=== PATIENT | female | born 1960 | race Caucasian/White ===

== ENCOUNTER 2017-05-13 07:53 | Inpatient (IN) | payer OTHER ==
[~2017-05-13] VITALS: Ht 149.9 cm; Wt 40.8 kg
--- NOTE | 2017-05-13 15:00 | NUR ---
PRE ASSESSMENT Pt 57 y/o female in admission office,came from home with . Pt alert and oriented to name, place, and time. Perrla.Skin warm and dry to touch. Respirations even and unlabored. Bilateral fine hand tremors noted. Pt appears slightly anxious during conversation. VS wnl; jp=583/87 p=79 r=16 o2=96@ra. Educated pt on rules on the unit and pt acknowledged. No distress noted at this time.
--- NOTE | 2017-05-13 15:10 | NUR ---
ADMISSION Pt 57 y/o female admitted for etoh dependence. Pt alert and oriented to name, place, and time. Perrla.Skin warm and dry to touch. Respirations even and unlabored. Bilateral fine hand tremors noted. Pt appears slightly anxious during conversation. Pt was seen by . JUAN estrella. Oriented pt to room and the unit. ciwa=8. Skin clear. Pt states pmd= Dr Jhaveri. Pt states does not currently attend AA, but had a sponsor but is about to change the current sponsor. Skin clear. Pt denies any sz history. Bed on lowest position with side rails x2 up for safety. Call light within reach. No distress noted at this time. Substance hx: -etoh ( wine) oral 1/2 glass daily x1 week. Last drink was 05/13/17 and had <1/2 glass; total 24 years 1 bottle daily x4 years. -etoh ( vodka) oral 1 shot glass 2-3 times a week for 4 years. Last drink 05/12/17 and had 1 shot glass. Total 24 years - ativan po 1mg daily x1 week. Last took 05/13/17 0.5mg. total 1 week. treatment hx - [facility] 03/2017-05/2017 medical hx htn, hysterectomy 1986
[2017-05-13] MEDS ORDERED: LORA0.5T PO (15:25)
[2017-05-13 15:26] LABS: *URINE HCG, QUAL NEGATIVE (NEGATIVE)
[2017-05-13] MEDS ORDERED: BETA15CR4 TP (15:26)
[2017-05-13] MEDS ORDERED: TRAZ-144 PO (15:27)
[2017-05-13] MEDS ORDERED: PROM25TA15 PO (15:28)
[2017-05-13] MEDS ORDERED: DIPH1TAB PO (15:29)
[2017-05-13] MEDS ORDERED: LOSA1TAB35 PO (15:30)
[2017-05-13] MEDS ORDERED: CITA10TA9 PO (15:30)
[2017-05-13] MEDS ORDERED: ESTR1.25 PO (15:32)
[2017-05-13] MEDS ORDERED: PANT40TA4 PO (15:33)
[2017-05-13 15:40] LABS: *AMPHETAMINE, URINE NEGATIVE (NEGATIVE); *BARBITURATE, URINE NEGATIVE (NEGATIVE); *CANNABINOID, URINE NEGATIVE (NEGATIVE); *COCCAINE, URINE NEGATIVE (NEGATIVE); *OPIATE, URINE NEGATIVE (NEGATIVE); *PHENCYCLIDINE SCREEN,URINE NEGATIVE (NEGATIVE)
[2017-05-13] MEDS ORDERED: LOPE-156 PO (15:54)
--- NOTE | 2017-05-13 15:57 | NUR ---
Therapist welcomed client to [facility] and advised client of daily group times. Client stated she will try to start attending groups tomorrow.
--- NOTE | 2017-05-13 16:33 | NUR ---
PRN Pt with ciwa=8. Pt anxious and bilateral hand tremors noted. Pt with pressured speech noted as well. Ativan po prn per MD order given and tolerated well.
--- NOTE | 2017-05-13 17:33 | NUR ---
PRN EVAL Pt with ciwa=3.
--- NOTE | 2017-05-13 18:36 | NUR ---
END OF SHIFT Pt 57 y/o female admitted for etoh dependence. Pt alert and oriented to name, place, and time. Perrla. Skin warm and dry touch. Respirations even and unlabored. Bilateral hand tremors noted. Pt with some periods of anxiety noted. Pt observed mostly isolative to room. Pt was seen by MD. Pt medication compliant and tolerated well. No ASE noted. Bed on lowest position with side rails x2 up for safety. Call light within reach. No distress noted at this time.
--- NOTE | 2017-05-13 19:05 | NUR ---
Start of Shift Patient Received. Patient is in her room awake, alert and verbally responsive. Breathing even and non labored. Patient is a 57 year old female admitted today 05/13/17 for ETOH Dependence under the care of Dr. [place]. Patient was placed on PRN medications for increased signs and symptoms of withdrawal. Patient verbalizes no known allergies, wishes to be full code, following a regular diet, placed on fall and seizure precautions, with skin noted intact. Labs drawn and to be resulted. Per endorsement, patient noted with CIWA of 8 and PRN Ativan 1mg administered as per orders. All needs attended to promptly. Will continue plan of care as orders.
[2017-05-13 20:00] LABS: BASOPHILS % (AUTO) 0.4 % (0.0-2.0); EOSINOPHILS # (AUTO) 0.2 K/uL (0.0-0.7); EOSINOPHILS % (AUTO) 3.3 % (0.0-7.0); ETHANOL < 3 MG/DL (0-0); HEMATOCRIT 33.3 % (37-47); HEMOGLOBIN 11.3 G/DL (12.0-16.0); LYMPHOCYTES # (AUTO) 1.2 K/UL (0.8-4.8); LYMPHOCYTES % (AUTO) 18.3 % (20.5-51.5); MEAN CORPUSCULAR HEMOGLOBIN 34.9 UUG (27.0-31.0); MEAN CORPUSCULAR HGB CONC 34 g/dL (32.0-37.0); MEAN CORPUSCULAR VOLUME 103.5 FL (81.0-99.0); MONOCYTES # (AUTO) 0.8 K/UL (0.1-1.30); MONOCYTES % (AUTO) 12.1 % (0.0-11.0); NEUTROPHILS # (AUTO) 4.1 K/UL (1.8-8.9); NEUTROPHILS % (AUTO) 65.9 % (38.5-71.5); PLATELET COUNT (AUTO) 136 K/UL (150-450); RED BLOOD CELL COUNT(AUTO) 3.22 MIL/UL (4.2-5.4); WHITE BLOOD COUNT (AUTO) 6.3 K/UL (4.0-11.2)
[2017-05-13 20:05] LABS: ALANINE AMINOTRANSFERASE 79 U/L (14-59); ALKALINE PHOSPHATASE 91 U/L (50-136); AMYLASE 64 U/L (25-115); ASPARTATE AMINOTRANSFERASE 59 U/L (15-37); BILIRUBIN,TOTAL 0.6 mg/dL (0.2-1.0); CARBON DIOXIDE 28 mmol/L (21-32); CHLORIDE 103 mmol/L (98-107); GLUCOSE 125 mg/dL (74-106); MAGNESIUM 1.3 mg/dL (1.8-2.4); POTASSIUM 3.4 mmol/L (3.5-5.1); TOTAL PROTEIN, SERUM 6.7 g/dL (6.4-8.2); UREA NITROGEN, BLOOD 16 mg/dL (7-18)
[2017-05-13 20:15] VITALS: BP 120/68
--- NOTE | 2017-05-13 21:45 | NUR ---
PRN Medication Administration Patient verbalizing increased anxiety and agitation. CIWA noted to be 16. Patient also noted to be tremulous, chills and sweats. PRN Ativan 2mg administered as per orders. Patients labs resulted and magnesium noted to be 1.3 and Potassium noted to be 3.4. Patient verbalizes of previously taking Potassium and Magnesium routinely but did not bring her medications with her. MD made aware. Will continue to monitor accordingly.
--- NOTE | 2017-05-13 22:30 | NUR ---
PRN Medication reassessment Patient is noted in bed awake and watching TV. Patient was given PRN Ativan 2mg for CIWA of 16. Patient is able to verbalize PRN Ativan was effective in reducing Anxiety. Patient still noted to be restless. Patient verbalized Im trying to slowly fall asleep. CIWA noted to be 4. All needs attended to promptly.
[2017-05-14 00:41] VITALS: BP 113/68
[2017-05-14 04:37] VITALS: BP 114/68
--- NOTE | 2017-05-14 07:09 | NUR ---
End of Shift Patient is in bed sleeping. Breathing even and non labored. No signs of pain or discomfort noted. Patient is a 57 year old female admitted on 05/13/17 for ETOH Dependence under the care of Dr. [place]. Patient was placed on PRN medications for increased signs and symptoms of withdrawal. No known allergies, Full Code, Regular Diet, placed on fall and seizure precautions, with skin noted intact. Labs resulted and noted with Potassium of 3.4 and Magnesium of 1.3. Patient was supplemented with Micro-K 30meq and Mag Ox 800mg. Patient noted with a CIWA of 16 and was given PRN Ativan 2mg as per order. PRN Medication noted to be effective CIWA noted to be 4. All needs attended to promptly. Will endorse to continue plan of care as ordered.
--- NOTE | 2017-05-14 07:10 | NUR ---
Start of Shift notes: Received patient in her room. Alert and verbally responsive. Oriented x 4. Able to make her needs known. Respirations even and unlabored. No SOB noted. Skin warm and dry to touch. Abdomen soft and non-distended. BS (+) in all 4 quadrants. No complains of N/V/D or constipation noted. Bladder non-distended. Voids independently. Ambulatory ad cristian with steady gait. Patient is a 57 year old female admitted for ETOH dependence who is only on PRNs at this time. Prior to admission, patient was 1/2 glass of eint and 1 shot of Vodka 2-3x/wk and 1 mg x 1 week. Has past medical hx of HTN, hysterectomy. NKA. FULL CODE. Regular diet. On fall and seizure precautions. Educated patient on her current plan of care for the day and her medication regimen. Encouraged oral fluid intake and encouraged group participation to learn new skills to prevent relapse.
[2017-05-14 08:00] VITALS: BP 135/91
--- NOTE | 2017-05-14 08:13 | NUR ---
Bentyl 20 mg PO/Tylenol 650mg/Ativan 1 mg PO given: CIWA 6, patient noted with mild to moderate anxiety, mild agitation, mild sweats. Also complains of abdominal cramps and headache. Denies N/V or diarrhea. Non-pharmacological interventions provided but ineffective. Medicated patient with Bentyl 20 mg PO for abdominal cramps, Tylenol 650 mg PO for headache and Ativan 1 mg PO for CIWA 6. Will monitor for effectiveness.
--- NOTE | 2017-05-14 09:13 | NUR ---
Re-assessment: Ativan, Bentyl and Tylenol CIWA 2; Less anxiety, less sweating noted. States that Tylenol 650 mg PO was effective in relieving headache and Bentyl 20 mg PO was effective in reducing stomach cramps. Ativan 1 mg PO was effective.
[2017-05-14 12:00] VITALS: BP 103/61
--- NOTE | 2017-05-14 12:50 | NUR ---
Order clarification: Trazadone Order clarification obtained from Dr. Barba regarding patient's Trazadone order at 1800. Patient is already on Trazdone 50mg PO QHS PRN for sleep. Per MD, continue with original orders. Orders noted and carried out.
--- NOTE | 2017-05-14 14:09 | NUR ---
Therapist prompted client to attend group today. Client agreed to attend group today.
[2017-05-14 16:00] VITALS: BP 133/61
--- NOTE | 2017-05-14 19:05 | NUR ---
Start of Shift Patient Received. Patient is in bed, awake, alert and verbally responsive. Breathing even and non labored. Patient is a 57 year old female admitted on 05/13/17 for ETOH Dependence and is currently receiving PRN medications for increased signs and symptoms of withdrawal. No known allergies, Full Code, Regular Diet, placed on fall and seizure precautions, with skin noted intact. Last noted CIWA 1. Patient was given PRN Ativan, Bentyl, Tylenol with medications noted to be effective. All needs attended to promptly. Will continue plan of care as ordered.
--- NOTE | 2017-05-14 19:07 | NUR ---
End of Shift Notes: Patient continues to be on close monitoring to manage symptoms for ETOH withdrawal. Patient is place on PRNs at this time. VS monitored closely q 4 hours. No significant abnormalities noted. Has hx of HTN. No s/s of hypo/HTN noted. Withdrawal symptoms closely monitored. Initial CIWA 6, patient presented with sweats, tremors and mild to moderate anxiety. Medicated patient with Ativan 1 mg, Bentyl 20 mg and Tylenol 650 mg PO for headache, stomach cramps and anxiety due to ETOH withdrawal with help after 1 hour. Last CIWA 1. Patient was unable to participate in group and activities during the shift due to her withdrawal symptoms. Compliant with care and treatment. All needs met and attended. Will endorse to night nurse for continuity of care.
[2017-05-14 20:30] VITALS: BP 116/60
[2017-05-15 00:24] VITALS: BP 111/60
--- NOTE | 2017-05-15 00:35 | NUR ---
PRN Medication Administration Patient verbalizing increased anxiety with chills and sweats verbalized. Patient is also verbalizing inability of falling asleep. CIWA noted to be 8. PRN Ativan 1mg and PRN Trazodone administered as per orders. Will continue to monitor.
--- NOTE | 2017-05-15 01:30 | NUR ---
PRN Medication Reassessment Patient is noted in bed sleeping. Breathing even and non labored. No signs of pain or discomfort noted. Patient was given PRN ativan 1mg for increased anxiety, sweats, and chills. patient was also given PRN Trazodone for inability of falling asleep. PRN Medications noted to be effective. Will continue to monitor.
[2017-05-15 04:15] VITALS: BP 112/68
--- NOTE | 2017-05-15 07:06 | NUR ---
End of Sift Patient is in bed sleeping. Breathing even and non labored. Patient is a 57 year old female admitted on 05/13/17 for ETOH Dependence and continues on PRN medications for increased signs and symptoms of withdrawal. No known allergies, Full Code, Regular Diet, placed on fall and seizure precautions, with skin noted intact. Last noted CIWA 8. Patient was given PRN Ativan 1 mg and Trazodone with medications noted to be effective. All needs attended to promptly. Will endorse to continue plan of care as ordered.
[2017-05-15 08:00] VITALS: BP 100/70
[2017-05-15 08:47] LABS: BILIRUBIN,DIRECT 0.1 mg/dL (0.0-0.2); BILIRUBIN,TOTAL 0.3 mg/dL (0.2-1.0); CREATININE 0.9 mg/dL (0.6-1.3); MAGNESIUM 1.5 mg/dL (1.8-2.4); POTASSIUM 4.5 mmol/L (3.5-5.1); TOTAL PROTEIN, SERUM 6.5 g/dL (6.4-8.2)
--- NOTE | 2017-05-15 08:58 | NUR ---
Ativan 1 mg PO given: CIWA 5, patient verbalizes moderate anxiety, intermittent diaphoresis and fine tremors to BUE. Medicated patient with Ativan 1 mg PO as ordered per CIWA score. Will monitor for effectiveness.
--- NOTE | 2017-05-15 09:58 | NUR ---
Re-assessment: CIWA 3, per patient verbalizes relief from anxiety and sweating. PRN Ativan 1 mg PO was effective.
[2017-05-15 10:08] LABS: HEPATITIS B SURFACE AG Negative (Negative)
--- NOTE | 2017-05-15 10:18 | NUR ---
Labs: Mag level 1.8L. Replaced with 800 mg of Max Oxide PO as ordered. Patient education provided.
--- NOTE | 2017-05-15 10:33 | NUR ---
Therapist prompted client to attend group today. Client agreed to attend.
[2017-05-15 12:00] VITALS: BP 92/61
--- NOTE | 2017-05-15 12:02 | NUR ---
Taper initiated: Dr. Montana placed patient on a modified 2-day Ativan taper as ordered. Patient education provided.
[2017-05-15 16:00] VITALS: BP 100/66
--- NOTE | 2017-05-15 19:05 | NUR ---
Start of Shift Patient Received. Patient is in her room, awake, alert and verbally responsive. Breathing even and non labored. Patient is a 57 year old female admitted on 05/13/17 for ETOH Dependence . No known allergies, Full Code, Regular Diet, placed on fall and seizure precautions, with skin noted intact. Per endorsement, Patient was seen and evaluated by MD with new orders for patient to be started on a modified 2 day Ativan taper. Last noted CIWA 1. All needs attended to promptly. Will endorse to continue plan of care as ordered.
--- NOTE | 2017-05-15 19:13 | NUR ---
End of Shift Notes: Patient started on modified 2-day Ativan taper as ordered to manage withdrawal symptoms from ETOH. VS monitored closely q 4 hours. No significant abnormalities noted. Has hx of HTN. No s/s of hypo/HTN noted. Withdrawal symptoms closely monitored. Initial CIWA 5, patient presented with sweats, tremors and mild to moderate anxiety. Medicated patient with Ativan 1 mg PO as ordered at 0858. Last CIWA 1. Patient was unable to participate in group and activities during the shift due to her withdrawal symptoms. Compliant with care and treatment. All needs met and attended. Will endorse to night nurse for continuity of care.
[2017-05-15 20:41] VITALS: BP 101/68
--- NOTE | 2017-05-15 20:45 | NUR ---
PRN Medication Administration Patient is verbalizing inability of falling asleep. PRN Trazodone administered as per order. Will continue to monitor.
--- NOTE | 2017-05-15 21:30 | NUR ---
PRN Medication Reassessment Patient noted in bed sleeping. Breathing even and non labored. No signs of pain or discomfort noted. PRN Trazodone noted to be effective. Patient continues to sleep with no complications noted. Will continue to monitor.
[2017-05-16 00:28] VITALS: BP 97/56
[2017-05-16 04:16] VITALS: BP 102/53
--- NOTE | 2017-05-16 07:18 | NUR ---
End of Shift Patient is in bed sleeping. Breathing even and non labored. Patient is a 57 year old female admitted on 05/13/17 for ETOH Dependence . No known allergies, Full Code, Regular Diet, placed on fall and seizure precautions, with skin noted intact. Patient was given PRN Trazodone with medication noted to be effective. Last noted CIWA 6. PPD to be reassessed today 05/16/17. All needs attended to promptly. Will endorse to continue plan of care as ordered.
--- NOTE | 2017-05-16 07:55 | NUR ---
START OF SHIFT Rcvd endorsement from ongoing nurse, client is in bed, she is a/o x 4, she presents with depressed mood, flat affect, and flushed face. She reports abdominal cramps, restless legs, decreased appetite and anxiety. Client denies any N/V/D. She denies any SI/HI. Encouraged client to attend group therapy for skills to maintain sober. Encouraged client to increase PO fluid as tolerated to facilitate detox. Client is a 57 y/o female, admitted to [facility] for withdrawal from alcohol. Client is on a modified Ativan fixed-dose scheduled taper x 2 day, tolerating well. Last CIWA 6 @ 0800. Client had an uneventful night, she slept 7 hrs. She denies any hx of of withdrawal-induced seizures, she is on seizure precautions. She reports NKA, she is full code, Regular diet. Side rails x 2 up/padded. Call light within reach.
[2017-05-16 08:22] VITALS: BP 104/60
--- NOTE | 2017-05-16 09:00 | NUR ---
Zero induration noted @ TB site on L forearm.
[2017-05-16 12:00] VITALS: BP 109/68
[2017-05-16 16:55] VITALS: BP 104/66
--- NOTE | 2017-05-16 19:07 | NUR ---
END OF SHIFT Client is a 57 y/o female, admitted to [facility] for withdrawal from alcohol. Client completed a modified Ativan fixed-dose scheduled taper x 2 day, tolerated well. Last CIWA 4 @ 1600. Zero induration noted at TB site on L forearm. Client is schedule for discharge tomorrow to [facility], she stated that she is ready to continue her treatment into recovery. Encouragement needed for client to attend group therapy. Adequate PO fluid intake 2190mL, void x 4, stool x 1. She denies any hx of of withdrawal-induced seizures, she is on seizure precautions. She reports NKA, she is full code, Regular diet. Side rails x 2 up/padded. Call light within reach.
[2017-05-16 20:00] VITALS: BP 125/76
--- NOTE | 2017-05-16 20:00 | NUR ---
Start of Shift Notes Received a 57 y/o female, admitted to [facility] for withdrawal from alcohol. Px has NKA, full code, and on Regular diet. Client completed a modified Ativan fixed-dose scheduled taper x 2 day, tolerated well. To be discharge tomorrow, 05/17/2017 to [facility]. During the rounds at 1930, px appears anxious and requested for pill to help her sleep tonight. CIWA 3. Side rails x 2 up/padded. Call light within reach. We'll continue to monitor.
--- NOTE | 2017-05-16 20:58 | NUR ---
PRN Trazodone Px requested for Trazodone to help her sleep tonight. Trazodone 50 mg/tab, 1 tab given PO as PRN med. We'll continue to monitor.
[2017-05-17] VITALS: BP 119/72
--- NOTE | 2017-05-17 | NUR ---
CIWA deferred CIWA deferred due to px is sleeping, to assess if the px is awake per doctor's order. We'll continue to monitor.
[2017-05-17 04:00] VITALS: BP 124/77
--- NOTE | 2017-05-17 04:00 | NUR ---
CIWA deferred CIWA deferred due to px is sleeping, to assess if the px is awake per doctor's order. We'll continue to monitor.
--- NOTE | 2017-05-17 07:18 | NUR ---
End of Shift Notes 57 y/o female, admitted to [facility] for withdrawal from alcohol. Px has NKA, full code, and on Regular diet. Client completed a modified Ativan fixed-dose scheduled taper x 2 day, tolerated well. To be discharge today, 05/17/2017 to [facility]. During the shift, px appears anxious and requested for pill to help her sleep tonight. Trazodone 50 mg/tab, 1 tab given PO as PRN med. Oral intake of 1,450 ml, voided 3x, No BM. Slept for 6 hrs. Last CIWA 3. Side rails x 2 up/padded. Call light within reach. We'll continue to monitor.
--- NOTE | 2017-05-17 07:33 | NUR ---
START OF SHIFT Received report from night nurse. 57 year old female patient admitted on 05/13/17 for ETOH and benzo withdrawals. Pt has completed Ativan taper and is medically cleared for discharge. Pt does not present with s/s of acute withdrawals. PRN Trazodone was administered and effective, pt slept for 6 hours. V/S remain WNL. Pt is aware of discharge and states she is ready, ambulates with steady gait. All needs met at this time, will continue to monitor.
[2017-05-17 08:07] VITALS: BP 117/64
[2017-05-17 08:24] VITALS: BP 117/76
--- NOTE | 2017-05-17 09:25 | NUR ---
D/C NOTES Pt is A/O x4. Denies SI/HI or hallucinations. Pt does not present with acute s/s of withdrawals. CIWA is 2. All pt belongings are in belonging bag including home medications. Pt prescription is via electronic. Ambulates with a steady gait, pt states she is ready for discharge. All needs met, pt is being accompanied by F[employer] ENGINEERING MANAGER at this time to be transported to rehab.
== END 2017-05-17 09:22 | disposition other institution (70) | DRG 895 ==
LOC: SRC 14:06
PROVIDERS: ADMIT Internal Medicine; ATTEND Internal Medicine
PROC: HZ2ZZZZ Detoxification Services for Substance Abuse Treatment (ICD-10-PCS; principal; 2017-05-13)
PROC: HZ41ZZZ Group Counseling for Substance Abuse Treatment, Behavioral (ICD-10-PCS; 2017-05-14)
PROC: HZ31ZZZ Individual Counseling for Substance Abuse Treatment, Behavioral (ICD-10-PCS; 2017-05-15)
DX: F10.230 Alcohol dependence with withdrawal, uncomplicated (principal); F33.2 Major depressive disorder, recurrent severe without psychotic features; K70.10 Alcoholic hepatitis without ascites; E83.42 Hypomagnesemia; F10.288 Alcohol dependence with other alcohol-induced disorder; F13.90 Sedative, hypnotic, or anxiolytic use, unspecified, uncomplicated; Y90.9 Presence of alcohol in blood, level not specified; Z78.0 Asymptomatic menopausal state; Z91.89 Other specified personal risk factors, not elsewhere classified; F41.9 Anxiety disorder, unspecified; Z90.710 Acquired absence of both cervix and uterus; Z90.49 Acquired absence of other specified parts of digestive tract; Z83.3 Family history of diabetes mellitus; Z84.1 Family history of disorders of kidney and ureter; Z80.9 Family history of malignant neoplasm, unspecified; Z82.49 Family history of ischemic heart disease and other diseases of the circulatory system; Z81.8 Family history of other mental and behavioral disorders; Z79.899 Other long term (current) drug therapy; K58.1 Irritable bowel syndrome with constipation; E87.6 Hypokalemia; D53.9 Nutritional anemia, unspecified; I10 Essential (primary) hypertension; R73.9 Hyperglycemia, unspecified
CPT/HCPCS: 36415; 70030-TC; 80307; 82746; 83550; 83735; 84703; 85025; 86580; 86592; 86705; 86803; 87340; 87806; A4663; G0480; J3411